=== PATIENT | female | born 1985 | race Caucasian/White ===

== ENCOUNTER 2022-08-10 09:02 | Emergency (ER) | payer OTHER ==
[2022-08-10 09:12] VITALS: BMI 20.1
[2022-08-10] MEDS ORDERED: IBUPROFEN 600 MG TABLET (FP) PO ONE ×2 (10:12→10:59)
[2022-08-10] MEDS ORDERED: SODIUM CHLORIDE 0.9% 500 ML INFUS.BAG IV ONE (11:05)
[2022-08-10 11:35] LABS: HEMATOCRIT 37.6 % (32.4-45.2); HEMOGLOBIN 12.8 GM/dL (10.7-15.3); MCH 29.4 pg (25.7-33.7); MCHC 34.1 g/dl (32.0-36.0); MEAN CELL VOLUME 86.1 fl (80-96); MEAN PLT VOLUME 9.1 fl (7.5-11.1); PLATELET COUNT 139 10^3/uL (134-434); RBC 4.36 M/mm3 (3.60-5.2); RDW 15.3 % (11.6-15.6); WHITE BLOOD COUNT 13.2 K/mm3 (4.0-10.0)
[2022-08-10 11:56] LABS: CALCIUM 9.1 mg/dL (8.5-10.1)
[2022-08-10 11:57] LABS: ALBUMIN 2.7 g/dl (3.4-5.0); BLOOD UREA NITROGEN 17.7 mg/dL (7-18)
[2022-08-10 12:00] LABS: CREATININE 0.8 mg/dL (0.55-1.3)
[2022-08-10 12:01] LABS: BILIRUBIN,TOTAL 1.3 mg/dL (0.2-1); TOT PROT 7.7 g/dl (6.4-8.2)
[2022-08-10 12:29] LABS: ANISOCYTOSIS 0; HELMET CELLS 0; HOWELL-JOLLY BODIES 0; MACROCYTOSIS 0; OVALOCYTE 0; ROULEAU 0; SICKELED CELLS 0; TARGET CELLS 0; TEAR DROP CELLS 0; TOXIC GRANULATION 0
[2022-08-10 13:32] LABS: EPI CELLS >36 /uL (0-25.1); HYALINE CASTS 3 /uL (0-3.1); PH,URINE 5.5 (5.0-8.0); URINE APPEARANCE CLOUDY; URINE BACTERIA 529 /uL (0-1359); URINE BILIRUBIN NEGATIVE (NEGATIVE); URINE COLOR YELLOW; URINE GLUCOSE (UA) NEGATIVE (NEGATIVE); URINE KETONE NEGATIVE (NEGATIVE); URINE LEUK ESTERASE 1+ (NEGATIVE); URINE NITRITE NEGATIVE (NEGATIVE); URINE PROTEIN 2+ (NEGATIVE); URINE RBC 14 /uL (0-23.9); URINE WBC 171 /uL (0-25.8)
[2022-08-10] MEDS ORDERED: methaDONE HCL 10 MG TABLET PO ONE (14:25)
[2022-08-10] MEDS ORDERED: methaDONE HCL 10 MG TABLET ONE (14:50)
[2022-08-10 14:54] VITALS: BP 102/59; PULSE 101; RESP 19; TEMP 97.3
== END 2022-08-10 15:38 | disposition home or self-care (01) ==
LOC: JER 09:02
DX: R53.81 Other malaise (principal); R50.9 Fever, unspecified; Z20.822 Contact with and (suspected) exposure to COVID-19
CPT/HCPCS: 0241U-QW; 36415; 71046-TC-FY; 80053; 81003; 84703; 85025; 99284-25